=== PATIENT | female | born 1980 | race Caucasian/White ===

== ENCOUNTER 2024-01-28 22:05 | Emergency (ER) | payer OTHER, SELFPAY ==
[2024-01-28 22:08] VITALS: BP 138/83
--- NOTE | 2024-01-28 23:37 | ED.GENMED ---
History of Present Illness
General
Chief Complaint: Skin Problem
Source: patient
Exam Limitations: none
Time Seen by Provider: 01/28/24 23:30
Nursing documentation reviewed up to this point in time: agreed with
History of Present Illness
History of Present Illness:
43-year-old female itchy rash to the left thenar eminence, possibly bitten or stung by an insect on her long finger rash preceded this stating she had increased pain and swelling no relief with antifungals from her PCP
Past History
Past History
ED Past Medical History: Psychiatric (Seroquel, Zoloft and gabapentin)
ED Past Surgical History:
Social History
Tobacco: Non-smoker
Alcohol: None
Drug: None
Personal:
Living: with family
Review of Systems
Review of Systems
All Other Systems: Not applicable
Constitutional: Denies fever or fatigue
EENT: Reports no symptoms
Cardiac: Reports no symptoms
ABD/GI: Reports no symptoms
Skin: Reports itching and rash
Phy Exam
Physical Exam
Physical Exam:
Physical Exam
General: no apparent distress, not acutely ill
Neck: No jaundice
Heart: s1/s2 regular rate and rhythm, no murmur. equal radial pulses.
Lungs: no acute respiratory distress. clear bilaterally
Neuro: alert and oriented. no focal neurological deficits
Skin: Described below
Psychiatric: well kept. interactive and cooperative
Extremities: Swelling with macular pruritic rash thenar eminence minimal warmth
Course
Orders/Labs/Results
Orders:
Orders
01/28/24 23:35
Prednisone [Deltasone] 50 mg PO NOW STA
Vital Signs
Initial and Last Documented VS:
Initial Vital Signs
Temp Pulse Resp BP Pulse Ox
98.3 F 86 18 138/83 97
01/28/24 22:08 01/28/24 22:08 01/28/24 22:08 01/28/24 22:08 01/28/24 22:08
Last Documented Vital Signs
Temp Pulse Resp BP Pulse Ox
98.3 F 86 18 138/83 97
01/28/24 22:08 01/28/24 22:08 01/28/24 22:08 01/28/24 22:08 01/28/24 22:08
MDM/Problems Addressed
Differential Diagnosis Includes:
Dermatitis nonspecific rash contact dermatitis no convincing evidence of bee sting doubt cellulitis
MDM/Problems Addressed:
Rash
*Critical Care Note
Total Time (30-74mins, 75-104mins- exclusive of procedures): Not Applicable
Update Note
Update Note:
Will treat with topical steroid antifungal and short burst of steroids
ED Attending Note
-
Portions of this chart may have been created with voice recognition software.� Occasional wrong word or��sound alike� substitutions may have occurred due to the inherent limitations of voice recognition software.
Discharge Plan
Departure
Patient Disposition: Home (Routine Discharge)
Date of Disposition: 01/28/24
Time of Disposition: 23:35
Patient with high blood pressure during this ER visit?: No
Condition: Good
Covid-19: Not Applicable
Discharge Problem:
Rash
Instructions: Skin Rash (DC)
Prescriptions:
New
methylprednisolone [Medrol (Ja)] 4 mg tablets,dose pack
See Rx Instructions .ROUTE .COMPLEX Qty: 21 0RF
Rx Instructions:
for 6 days
clotrimazole-betamethasone 1-0.05 % lotion
1 applic topical BID Qty: 30 0RF
Rx Instructions:
Small mount to rash twice a day for a week
No Action
norethindrone (contraceptive) [Marj] 0.35 MG tablet
0.35 mg PO DAILY
ondansetron 4 MG tablet,disintegrating
4 mg PO TIDPRN PRN (Reason: nausea/vomiting) Qty: 9 0RF
hydrocortisone 0.5 % cream
1 applic topical BID PRN (Reason: rash) Qty: 28.4 0RF
prednisone 20 mg tablet
40 mg PO DAILY Qty: 6 0RF
Referrals:
Bettye Patel MD [Family Provider] - Next open appointment
Activity Restrictions/Additional Instructions:
Return to the ER if worsening symptoms
Interventions
Interventions:
*Risk Screen - Suicide Last Done: 01/28/24 23:27
*General Assessment Last Done: 01/28/24 23:27
*Neglect/Abuse Screening Last Done: 01/28/24 23:27
ED-Skin Assessment Last Done: 01/28/24 23:27
Discharge Date and Time
Print Language: CITIZ[place]
[2024-01-28] MEDS: DELTASONE 50 MG PO (23:48)
[2024-01-28 23:50] VITALS: BP 122/70
== END 2024-01-28 23:52 | disposition home or self-care (01) ==
LOC: EMR 22:05
PROVIDERS: EMERGENCY PHYSICIAN Emergency Medicine; FAMILY PHYSICIAN Internal Medicine
DX: R21 Rash and other nonspecific skin eruption (principal)
CPT/HCPCS: 99282